=== PATIENT | male | born 1955 | race Caucasian/White ===

== ENCOUNTER 2016-08-10 08:52 | Emergency (ER) | payer MEDICARE, OTHER ==
[~2016-08-10] VITALS: Ht 177.8 cm; Wt 79.5 kg
[~2016-08-10 08:52] MED LIST: ALBUTEROL1.25 MG/3 IH; ASPIRIN 32325 MG/TAB PO; CHANTIX 0.5MG0.5 MG PO; CLEOCIN HCL300 MG PO; CLOPIDOGREL; CRESTOR40 MG PO; DIFLUCAN200 MG PO; LEVAQUIN 750MG750 M1 PO; LIPITOR 80MG80 MG PO; LISINOPRIL; LORTAB 5/500 501 TAB PO; NITROQUICK0.4 MG SL; NORCO 325 MG-51 TAB PO; PERCOCET 325 MG1 TA2 PO; PLAVIX 75MG TAB75 MG PO; PREDNISONE10 MG PO; PREDNISONE20 MG PO; PROZAC 20MG20 MG PO; RT ADVAIR HFA 2312 G IH; RT SPIRIVA18 MCG IH; SINGULAIR 110 MG/TAB PO; THEO-24 20200 MG/CAP; THEO-DUR 1100 MG/TAB PO; THEO-DUR 2200 MG/TAB PO; TOPROL XL 25MG25 MG PO; VENTOLIN0.09 MG IH; WELLBUTRIN SR150 M1 PO; ZOCOR; ZOCOR 40MG40 MG PO; ZOCOR 80MG80 MG PO
[2016-08-10 08:55] VITALS: BP 128/88; PULSE 90; TEMP 98.8
[2016-08-10] MEDS ORDERED: CRESTOR 10MG10 MG PO (09:25)
[2016-08-10] MEDS ORDERED: ULTRAM 50MG TAB50 MG PO (10:11)
[2016-08-10] MEDS ORDERED: NORCO 325 MG-51 TAB PO (10:11)
== END 2016-08-10 10:36 | disposition home or self-care (01) ==
LOC: COL.ER 08:52
DX: S20.211A Contusion of right front wall of thorax, initial encounter (principal); S20.221A Contusion of right back wall of thorax, initial encounter; W22.8XXA Striking against or struck by other objects, initial encounter; W07.XXXA Fall from chair, initial encounter; Y92.009 Unspecified place in unspecified non-institutional (private) residence as the place of occurrence of the external cause; F17.210 Nicotine dependence, cigarettes, uncomplicated

== ENCOUNTER → 2016-11-07 | Outpatient (CLI) | payer MEDICARE, OTHER ==
[~2016-11-07] MED LIST changes: +CRESTOR 10MG10 MG PO; +ULTRAM 50MG TAB50 MG PO
== END ==
LOC: COL.PUL 07:57
DX: J44.9 Chronic obstructive pulmonary disease, unspecified (principal); R94.2 Abnormal results of pulmonary function studies

== ENCOUNTER 2022-12-28 11:18 | Emergency (ER) | payer MEDICARE, OTHER ==
[~2022-12-28] VITALS: Ht 175.3 cm; Wt 83.2 kg
[2022-12-28 11:53] LABS: BASO % 0.1 % (0.0-2.0); GRAN # 10.1 K/mm3 (1.4-6.5); GRAN % 89.6 % (42.2-75.2); HEMATOCRIT 49.8 % (42.0-52.0); HEMOGLOBIN 17.3 g/dl (13.5-18.0); LYMPH # 0.7 K/mm3 (1.2-3.4); LYMPH % 6.1 % (20.0-51.0); MEAN CELL VOLUME 96 fl (80.0-100.0); MEAN CORPUSCULAR HEMOGLOBIN 33 pg (27-31); MEAN CORPUSCULAR HGB CONC 35 g/dl (33.0-37.0); MEAN PLATELET VOLUME 9.5 fl (7.4-10.4); MONO # 0.4 K/mm3 (0.1-0.6); MONO % 3.8 % (1.7-9.3); PLATELET COUNT 247 K/mm3 (130-400); RED BLOOD COUNT 5.18 M/mm3 (4.20-5.60); REDCELL DISTRIBUTION WIDTH-CV 12.8 % (11.5-14.5)
[2022-12-28 12:12] LABS: ALANINE AMINOTRANSFERASE 30 U/L (0-55); ALBUMIN 3.6 gm/dL (3.4-4.8); ALKALINE PHOSPHATASE 78 U/L (40-150); ANION GAP 11 mmol/L (7-16); AST,SGOT 23 U/L (5-34); BILIRUBIN,TOTAL 1.2 mg/dL (0.2-1.2); BLOOD UREA NITROGEN 9 mg/dL (8-26); CALCIUM 9.6 mg/dL (8.4-10.2); CARBON DIOXIDE 27 mmol/L (23-31); CHLORIDE 101 mmol/L (98-107); CREATININE, serum 0.84 mg/dL (0.72-1.25); GLUCOSE 138 mg/dL (70-99); POTASSIUM 3.7 mmol/L (3.5-4.5); SODIUM 139 mmol/L (136-145); TOTAL PROTEIN 6.8 gm/dL (6.2-8.1)
[2022-12-28 12:23] LABS: TROPONIN-I < 0.010 ng/mL (0.00-0.033)
[2022-12-28 14:55] VITALS: BP 147/92; PULSE 80; TEMP 98.1
== END 2022-12-28 13:29 | disposition home or self-care (01) ==
LOC: COL.ER 11:18
PROVIDERS: Emergency Medicine
DX: J44.0 Chronic obstructive pulmonary disease with (acute) lower respiratory infection (principal); J18.9 Pneumonia, unspecified organism; J44.1 Chronic obstructive pulmonary disease with (acute) exacerbation; J90 Pleural effusion, not elsewhere classified; Z79.02 Long term (current) use of antithrombotics/antiplatelets; Z79.51 Long term (current) use of inhaled steroids; Z99.81 Dependence on supplemental oxygen; Z95.5 Presence of coronary angioplasty implant and graft; Z20.822 Contact with and (suspected) exposure to COVID-19; Z79.2 Long term (current) use of antibiotics
CPT/HCPCS: J1100